=== PATIENT | female | born 1990 | race Caucasian/White ===

== ENCOUNTER 2020-08-05 05:37 | Inpatient (IN) | payer BC ==
[~2020-08-05] VITALS: Ht 152.4 cm; Wt 69.4 kg
[~2020-08-05 05:37] MED LIST: COLACE 100MG C100 MG PO; IBUPROFEN600 MG PO; NORCO 5-325 TA1 EACH PO; SYNTHROID200 MCG PO
[2020-08-05] MEDS ORDERED: SYNTHROID137 MCG PO (06:21)
[2020-08-05] MEDS ORDERED: PRENATAL VITAM1 EAC3 PO (06:22)
[2020-08-05 06:42] LABS: HEMOGLOBIN 10.5 gm/dl (12.3-15.3); RED BLOOD COUNT 3.17 M/UL (4.00-5.10); WHITE BLOOD COUNT 9.4 K/UL (4.5-11.0)
[2020-08-05] MEDS ORDERED: IBUPROFEN600 MG PO (15:07)
[2020-08-05] MEDS ORDERED: DOCUSATE SODIU100 MG PO (15:07)
[2020-08-06 05:54] LABS: HEMOGLOBIN 9.8 gm/dl (12.3-15.3)
[2020-08-06] MEDS ORDERED: MEDROL DOSEPAK 24 MG PO (10:24)
== END 2020-08-06 16:16 | disposition home or self-care (01) | DRG 807 ==
LOC: OB 05:37
PROVIDERS: Obstetrics & Gynecology; ADMIT Obstetrics & Gynecology
PROC: 10E0XZZ Delivery of Products of Conception, External Approach (ICD-10-PCS; principal; 2020-08-05)
PROC: 0KQM0ZZ Repair Perineum Muscle, Open Approach (ICD-10-PCS; 2020-08-05)
PROC: 10907ZC Drainage of Amniotic Fluid, Therapeutic from Products of Conception, Via Natural or Artificial Opening (ICD-10-PCS; 2020-08-05)
PROC: 3E0234Z Introduction of Serum, Toxoid and Vaccine into Muscle, Percutaneous Approach (ICD-10-PCS; 2020-08-05)
PROC: 4A1HXCZ Monitoring of Products of Conception, Cardiac Rate, External Approach (ICD-10-PCS; 2020-08-05)
DX: O99.284 Endocrine, nutritional and metabolic diseases complicating childbirth (principal); Z37.0 Single live birth; E03.9 Hypothyroidism, unspecified; Z3A.39 39 weeks gestation of pregnancy; Z20.822 Contact with and (suspected) exposure to COVID-19; O99.02 Anemia complicating childbirth; D64.9 Anemia, unspecified; O62.2 Other uterine inertia; O70.1 Second degree perineal laceration during delivery; Z23 Encounter for immunization
CPT/HCPCS: 36415; 51702; 81001; 82800; 85014; 85018; 85025; 85461; 86850; 86900; 86901; 90471; 90715; J2210; J2405; J2590; J2790; J2795; U0002

== ENCOUNTER → 2021-08-09 | Outpatient (CLI) | payer BC ==
[~2021-08-09] MED LIST changes: +DOCUSATE SODIU100 MG PO; +MEDROL DOSEPAK 24 MG PO; +PRENATAL VITAM1 EAC3 PO; +SYNTHROID137 MCG PO
== END ==
LOC: LAB 12:32
DX: E03.9 Hypothyroidism, unspecified (principal)
CPT/HCPCS: 36415; 84439; 84443

== ENCOUNTER → 2021-10-24 | Outpatient (CLI) | payer BC | LOC: LAB 14:07 | DX: E03.9 Hypothyroidism, unspecified (principal) | CPT/HCPCS: 36415; 84439; 84443 ==

== ENCOUNTER → 2022-01-20 | Outpatient (CLI) | payer BC | LOC: LAB 16:25 | DX: E03.9 Hypothyroidism, unspecified (principal) | CPT/HCPCS: 36415; 84439; 84443 ==